=== PATIENT | male | born 1950 | race Caucasian/White ===

== ENCOUNTER 2022-06-05 14:41 | Outpatient (CLI) | payer MEDICARE, OTHER, SELFPAY ==
--- NOTE | 2022-06-05 14:36 | DI.RAD_ITS ---
Exam(s) XR SHOULDER RT COMPLETE 2+V EXAM: XR SHOULDER RT COMPLETE 2+V CLINICAL HISTORY: R shoulder pain. TECHNIQUE: 2D digital imaging was performed. Five views. COMPARISON: No exams were available for comparison FINDINGS: BONES: No acute fracture is present. No bony destructive lesion is seen. The prior rotator cuff repa ir with suture anchors in the humeral head. JOINTS: No dislocation present. Mild spurring at the glenoid. Mild spurring at the tip of the acrom ion. SOFT TISSUE: Normal. IMPRESSION: Mild degenerative changes. DATA REPOSITORY: RADIATION DOSE DELIVERED:
== END 2022-06-05 14:42 | disposition home or self-care (01) ==
LOC: DIORS 14:42
PROVIDERS: PCP Family Medicine; Referring Provider Family Medicine; Visit Provider Student in an Organized Health Care Education/Training Program
DX: M67.911 Unspecified disorder of synovium and tendon, right shoulder (principal)
CPT/HCPCS: 99203; 73030

== ENCOUNTER → 2022-07-31 09:40 | Outpatient (BNVA) | payer MEDICARE, OTHER, SELFPAY | PROVIDERS: PCP Family Medicine; Referring Provider Family Medicine; Visit Provider Student in an Organized Health Care Education/Training Program | DX: M75.21 Bicipital tendinitis, right shoulder (principal) | CPT/HCPCS: 99213 ==

== ENCOUNTER 2022-08-03 13:06 | Outpatient (CLI) | payer MEDICARE, OTHER, SELFPAY | END 2022-08-03 13:07 | disposition home or self-care (01) | LOC: ORDER INT 13:12 | PROVIDERS: PCP Family Medicine; Referring Provider Family Medicine; Visit Provider Student in an Organized Health Care Education/Training Program | DX: M75.21 Bicipital tendinitis, right shoulder (principal) ==

== ENCOUNTER → 2022-08-03 13:06 | Outpatient (BNVA) | payer MEDICARE, OTHER, SELFPAY | PROVIDERS: PCP Family Medicine; Referring Provider Family Medicine; Visit Provider Student in an Organized Health Care Education/Training Program | DX: M75.21 Bicipital tendinitis, right shoulder (principal) | CPT/HCPCS: 20611; J1040 ==

== ENCOUNTER 2022-09-21 10:05 | Outpatient (CLI) | payer MEDICARE, OTHER, SELFPAY ==
--- NOTE | 2022-09-21 09:45 | DI.RAD_ITS ---
Exam(s) XR KNEE LT 3V AP,LAT,JAYASHREE EXAM: XR KNEE LT 3V AP,LAT,JAYASHREE CLINICAL HISTORY: left knee pain. TECHNIQUE: 2D digital imaging was performed. COMPARISON: No exams were available for comparison FINDINGS: 3 views No evidence of fracture. Joint effusion noted. There are degenerative changes, most prominent in the lateral compartment where there is [id number] narrowing on the weight-bearing view. More moderate degenerative changes in the medial patellofemor al compartments. Bone density normal. No osseous lesions. IMPRESSION: Degenerative changes, most prominent in the lateral compartment. Joint effusion noted. DATA REPOSITORY: RADIATION DOSE DELIVERED:
== END 2022-09-21 10:06 | disposition home or self-care (01) ==
LOC: DIORS 10:05
PROVIDERS: PCP Family Medicine; Referring Provider Family Medicine; Visit Provider Student in an Organized Health Care Education/Training Program
DX: M17.12 Unilateral primary osteoarthritis, left knee; M75.21 Bicipital tendinitis, right shoulder
CPT/HCPCS: 73562; 99214

== ENCOUNTER 2023-01-23 16:03 | Outpatient (CLI) | payer MEDICARE, OTHER, SELFPAY ==
--- NOTE | 2023-01-23 14:30 | DI.RAD_ITS ---
Exam(s) XR SHOULDER LT COMPLETE 2+V EXAM: XR SHOULDER LT COMPLETE 2+V CLINICAL HISTORY: left shoulder pain. TECHNIQUE: 2D digital imaging was performed. Three views. COMPARISON: CR XR SHOULDER RT COMPLETE 2+V from 06/05/2022 FINDINGS: BONES: No acute fracture is present. No bony destructive lesion is seen. Metallic density in proxima l humerus presumably related to biceps tendon repair. And adjacent area of a bony exostosis. Is sig nificant spurring at the undersurface of the acromion. JOINTS: No dislocation present. Glenohumeral joint space is maintained. Minimal spurring. Mild spu rring at AC joint. SOFT TISSUE: Normal. IMPRESSION: Postsurgical and degenerative changes. DATA REPOSITORY: RADIATION DOSE DELIVERED:
== END 2023-01-23 16:04 | disposition home or self-care (01) ==
LOC: DIORS 16:03
PROVIDERS: PCP Family Medicine; Referring Provider Family Medicine; Visit Provider Student in an Organized Health Care Education/Training Program
DX: M25.512 Pain in left shoulder (principal); M75.102 Unspecified rotator cuff tear or rupture of left shoulder, not specified as traumatic
CPT/HCPCS: 99213; 73030

== ENCOUNTER → 2023-02-14 01:06 | Outpatient (CLI) | payer MEDICARE, OTHER, SELFPAY ==
--- NOTE | 2023-02-14 08:15 | DI.MRI_ITS ---
Exam(s) MR UPPER JOINT LT WO EXAM: MR UPPER JOINT LT WO CLINICAL HISTORY: PAIN,LT ROTATOR CUFF TEAR,M75.102 TECHNIQUE: Multiplanar multisequence MRI of the shoulder was performed. COMPARISON: MR MRI - L UPPER JOINT WO CONT from 02/07/2016 CR XR SHOULDER LT COMPLETE 2+V from 01/23/2023 FINDINGS: MARROW:There is evidence of interval rotator cuff surgery and biceps tenodesis, with the biceps tenod esis site at the junction of the upper humeral diaphysis and humeral neck. There is no evidence of f racture or Hill-Sachs deformity. There is, however, bone edema evident in the lesser tuberosity ante rior aspect of the humeral head region. ROTATOR CUFF MECHANISM: AC JOINT/ACROMIUM: There moderate degenerative changes in the AC joint. Mild impingement at this lev el. No evidence of os acromial. Supraspinatus: There is tendinitis signal. There is a full-thickness tear in the tendon approximatel y 1.4 cm proximal to the greater tuberosity insertion. AP measurement of the tear is 1.2 cm. There is some fluid in the subacromial bursa. There is no prominent muscle atrophy of the supraspinatus. Infraspinatus: Appears intact. No significant atrophy Teres Minor: Intact. No evidence of tear nor muscle atrophy. Subscapularis/anterior cuff: Abnormal signal with partial tearing anterior to the lesser tuberosity. This involves the more inferior aspect of the multipennate tendon. BICEPS TENDON: Tenodesis site appears intact LABRUM: Anterior labrum exhibits some mild abnormal intrasubstance signal posterior to the previous b iceps attachment site. The biceps tendon is no longer attached to the anterosuperior labrum. The po sterior labrum appears intact. Anterior labrum appears unchanged. Anteroinferior labrum appears int act. No Bankart lesion identified. The inferior glenohumeral ligament appears intact. GLENOHUMERAL JOINT: No obvious joint effusion or loose intra-articular bodies. Mild degenerative eliceo nges. No osteophytes. No degenerative subarticular cysts. QUADRILATERAL SPACE: No evidence of mass in the region of the axillary nerve and dorsal circumflex hu meral vessels. Visualized triceps muscle at this level appears unremarkable. IMPRESSION: 1. Compared to prior MRI scan of 2015 there has been interval surgery the rotator cuff and biceps ten odesis. 2. There is a full-thickness tear of the supraspinatus tendon as described above. AP measurement of the tear is 1.2 cm. There is fluid in the overlying subacromial bursa. Mild retraction evident. No prominent atrophy of the muscle belly. 3. There is partial tearing of the anterior cuff-subscapularis anterior to the lesser tuberosity. Th ere is intraosseous edema signal in the lesser tuberosity also evident. 4. Appearance of the superior labrum reflects interval resection of the intra-articular biceps tendo n from the anterosuperior labrum. There is some mild signal abnormality in the superior labrum poste rior to the site but doubtful for full-thickness tear. 5. Mild degenerative changes. No osteophytes. No prominent joint effusion and no loose intra-artic ular bodies evident in the glenohumeral joint. Moderate degenerative changes are again noted in the AC joint. DATA REPOSITORY:
== END ==
PROVIDERS: PCP Family Medicine; Visit Provider Student in an Organized Health Care Education/Training Program
DX: M75.120 Complete rotator cuff tear or rupture of unspecified shoulder, not specified as traumatic (principal)
CPT/HCPCS: 73221

== ENCOUNTER → 2023-02-21 09:06 | Outpatient (BNVA) | payer MEDICARE, OTHER, SELFPAY | PROVIDERS: PCP Family Medicine; Referring Provider Family Medicine; Visit Provider Student in an Organized Health Care Education/Training Program | DX: M75.102 Unspecified rotator cuff tear or rupture of left shoulder, not specified as traumatic (principal) | CPT/HCPCS: 99214 ==

== ENCOUNTER 2023-03-22 06:15 | Day surgery (SDC) | payer MEDICARE, SELFPAY ==
[2023-03-22] VITALS (11 sets, daily range): BP systolic 93–163; BP diastolic 33–67; PULSE 54–73; RESP 11–19; TEMP 36.1–36.6; O2SAT 95–100; BMI 25.1
[2023-03-22] MEDS: Lactated Ringers 1,000 ML 30 ML IV ×2 (06:50→10:30)
--- NOTE | 2023-03-22 07:14 | W.PM.DSUDISC ---
Date of service: 03/22/23 Time of Service: 12:00 Discharge Plan Disposition Patient Disposition: Home Condition: Stable Discharge Details Attending Provider: Ryan Hale Primary Care Provider: Jeronimo Oliver Home Meds and New Rx's Prescriptions: New naproxen 250 mg tablet 250 - 500 mg PO BID PRNQty: 30 0RF Rx Instructions: take with a meal aspirin 81 mg tablet,delayed release (DR/EC) 81 mg PO DAILY 7 Days Qty: 7 0RF oxycodone 5 mg tablet 5 - 10 mg PO Q4H MDD 30 mg PRN (Reason: moderate to severe pain) Qty: 12 0RF Continued No Known Home Meds Discharge Instructions Additional Instructions: Surgery: Left shoulder arthroscopy with revision rotator cuff repair (supraspinatus), extensive debridement, and subacromial decompression. Activity: For 6 weeks, you should keep your arm at your side in a neutral position at all times except for physical therapy. Do not try to lift or raise your arm using your own muscles. You should use the sling whenever you are out of the house. You may have to adjust the abduction pillow or remove it for comfort. At home it is best to remove the sling and rest the arm on a pillow at your side or support the operative side with your other hand. You may allow the arm to dangle at your side. A physical therapy prescription will be sent electronically to begin in about 3 weeks. Prescriptions: Aspirin 81 mg take 1 daily to prevent a blood clot for 7 days Naproxen 250 mg take 1-2 every 12 hours with a meal as needed for moderate pain Oxycodone 5 mg take 1-2 every 4-6 hours as needed for severe pain You may use dars-ntr-tuenwqu Tylenol (acetaminophen) as needed for mild pain. These pain medications may be taken all at once or in different combinations as needed. Also, recommend Colace (docusate) as a stool softener as surgery and pain medicine cause constipation. You may try [id number] diphenhydramine (Benadryl) 25-50 mg nightly as a sleep aid Dressings: Remove shoulder bandage after 3 days. Leave the sticky Steri-Strips in place until they fall off or remove them after you shower. Cover the incisions with Band-Aids or leave them open to air. You may shower after 5 days. Follow-up: 10-[address] Hale You may take off the leg compression stockings this evening at home. You may also leave them on a few days longer if you have a history of leg swelling or edema. Let us know right away if you develop any redness, drainage, fevers, chest pain, or trouble breathing. Do not drink alcohol or drive for at least 24 hours after anesthesia. Please call the office during business hours with any questions or concerns. Discharge Orders Discharge Orders: Discharge Order (Routine); Ordered 03/22/23 Ordered By: Ryan Hale DS: Diagnosis Discharge Diagnosis (1) Left rotator cuff tear: Status: Acute
--- NOTE | 2023-03-22 07:16 | W.PM.OP ---
Date of service: 03/22/23 Time of Service: 07:30 Operative Note Operative Note DATE OF PROCEDURE: 03/22/23 PRE-OP DIAGNOSIS: Left: 1. Rotator cuff tear: Chronic subscapularis, acute recurrent supraspinatus 2. Prior open biceps tenodesis POST-OP DIAGNOSIS: same PROCEDURE: Left: 1. Revision rotator cuff repair, CPT# 97080. This involved revision repair of the supraspinatus using anchors and sutures to reattach the rotator cuff back to the footprint of the greater tuberosity. 2. Extensive debridement, CPT# 39595. This involved using arthroscopic hand instruments, power instruments, and radiofrequency instruments to release rotator interval adhesions, remove loose prior retained permanent suture material, and debride areas of labral tearing, and synovitis within the glenohumeral joint anteriorly, superiorly and posteriorly. 4. Subacromial decompression, CPT# 98918. This involved using arthroscopic power instruments and a radiofrequency wand to complete a bursectomy and smooth the exposed greater tuberosity to reduce acromiohumeral interval narrowing optimize space for healing. The paraprofessional education assistant was medically required in order to help assist in techniques above, which require positioning the arm, holding the arthroscope, and manipulating multiple instruments and sutures at the same time. This cannot be done without the help of an experienced paraprofessional education assistant. SURGEON: Ryan Hale PUBLICATIONS MANAGER: Kamron Machado ANESTHESIA TYPE: General LMA/ETT and Primary Nerve Block Refer to Anesthesia Record ESTIMATED BLOOD LOSS: 10 PATHOLOGY: none sent COMPLICATIONS: None Patient was transported to: PACU Patient's condition: stable Implants: Arthrex: 4.75mm SwiveLock x1, 5.5mm SwiveLock x1 Indications: The patient was diagnosed with the above conditions and appropriately indicated for surgical intervention. Please see complete medical record for details. Findings: Exam under anesthesia: Mild loss of terminal external rotation and forward elevation as well as abduction external rotation. No instability or significant mechanical symptoms Glenohumeral joint: Moderate synovitis anterior, superior, and posterior. Moderate diffuse labral fraying type tearing anterior, superior biceps anchor with biceps tendon previously removed, and posterior. Chronic deficient subscapularis with significant thinning, but no acute tearing amenable to repair. Rotator interval adhesions. Obvious defect starting at the articular margin of the anterior supraspinatus previous repair with exposed loose permanent suture material. Subacromial space: Moderate bursitis, full-thickness anterior supraspinatus recurrent rotator cuff tear with attached lerma supraspinatus most anteriorly and more posteriorly. Unusual shape tear narrow from anterior to posterior, residual tendon lateral most part of the greater tuberosity footprint, and defect extending across the majority of the footprint from medial articular margin to lateral. No significant acromial bone spurring or impingement from the undersurface distal clavicle. Procedure Description: In the operating room, general anesthesia was induced. Bilateral shoulders were examined. The patient was positioned in the beachchair position. All bony prominences were well-padded. Preoperative antibiotics were administered. The shoulder was prepped and draped in the usual sterile fashion. The correct patient, procedure, and side of the procedure were all verified prior to incision. Starting through the posterior portal a standard complete diagnostic arthroscopy was performed of the glenohumeral joint including inspection of the long head of the biceps, anterior and superior labrum, subscapularis tendon, supraspinatus and infraspinatus tendons, and axillary recess. The glenoid and humeral head cartilage as well as the posterior labrum were inspected from an anterior viewing portal. Significant findings and interventions noted above. Degenerative changes about the glenohumeral joint with debrided, loose permanent suture material hanging into the glenohumeral joint from the articular side of the tear was removed with mechanical shaver and pituitary rongeur's. Not sent for any pathology given the traumatic mechanical failure, no signs or symptoms of indolent infection. Starting through the posterior portal, the arthroscope was directed into the subacromial space. A lateral 50 yard line lateral portal was created. A combination of power instruments and a radiofrequency ablator were used to debride bursitis anteriorly, posteriorly, and laterally as well as expose and smooth exposed greater tuberosity footprint. The coracoacromial ligament was minimally released. The bursectomy was completed viewing laterally and working from posteriorly and the rotator cuff was thoroughly inspected with findings noted above. The unusual tear configuration was localized, additional bursal permanent suture material was removed with mechanical shaver, pituitary rongeur's, and Nayeli clamps. The rotator cuff edges were debrided to establish lerma healthy tissue margins. The tear was moderately sized from anterior to posterior, but had a larger extent from lateral to medial. The anterior and posterior tissues could be reapposed with some tension over the exposed footprint. The tissue from medial to lateral had limited excursion. It was likely a acute on chronic defect probably area that had not completely healed although the tissue overall was healthy especially considering the age and revision setting with staff tissue anterior and posterior supraspinatus to this tear. Additional anterior superior lateral posterior superior lateral working and viewing portals were established. The greater tuberosity was thoroughly debrided of fibrinous material, as mentioned above was smoothed to minimize bony impingement especially given advanced age and narrowing of the acromiohumeral interval, and prepared to optimize bone and tendon healing. Rotator cuff had been debrided to healthy stable margin. Given the extent of the tear, the decision was made to proceed with a medial and lateral row modified type fixation. A single 4.75 mm swivel lock anchor was placed at the medial articular margin centrally located in the tear preloaded with 2 pairs of suture tape. It was also double loaded with sliding repair #2 sutures. Sutures were organized and the sliding repair sutures and with the knotless suture passer the initial pair of sutures placed medial to the medial margin of the tear to reduce the tear modestly from medial to lateral as much as the tissue defect would allow. The next repair sutures were then a centrally through the tear defect incorporate anterior and posterior tissue for planned [id number] repair. The remaining pairs of suture tape were then placed through the anterior and posterior tissue medial and lateral to the central knotted repair sutures using the self retrieving suture passer and the 90 degree lasso. The medial row sliding sutures were then secured with SMC arthroscopic knot nicely reapposed and the medialmost tissue to the repair anchor and medial footprint. Next the more central sliding sutures were repaired reapposed in the anterior and posterior rotator cuff tissue. Lastly all 4 tails from the pairs of suture tape placed anterior and posteriorly through medial lateral or brought out the lateral cannula and localized to a single lateral row 5.5 minimally anchor with appropriate tension placed on the repair sutures. There was excellent tissue reduction and compression over the footprint especially considering the revision setting. The repair was stable through testing. The shoulder was drained of arthroscopic fluid. All portal sites were copiously irrigated. These incisions were closed using 3-0 Monocryl in a buried fashion and then covered with Mastisol, Steri-Strips, Xeroform, dry gauze, and ABDs. The dressings were covered and secured with Medipore tape. The operative extremity was placed into a sling for immobilization. The patient awoke from anesthesia without complication and was transferred to the recovery room in a stable condition.
--- NOTE | 2023-03-22 07:24 | W.ANESPRE ---
General Info Date of Service Date Performed: 03/22/23 Height: 5 ft 8 in Weight: 75 kg Body Mass Index (BMI): 25.1 Surgical Procedure: Operation Date: 03/22/23 07:40 Proposed Procedure Side Surgeon p Shoulder Revision Rotator Cuff Arthroscopic w/Extensive Debridement, Subacromial Decompression Left Ryan Hale MD Meds Allergies and Home Medications Allergies Allergy/AdvReac Type Severity Reaction Status Date / Time No Known Allergies Allergy Verified 03/22/23 06:42 Home Medication Medication Instructions Recorded Unknown [No Known Home Meds] 06/06/22 aspirin 81 mg tablet,delayed 81 mg PO DAILY prevent blood clot 03/22/23 release 7 days #7 tabs naproxen 250 mg tablet 250 - 500 mg (1 - 2 x 250 mg) PO 03/22/23 BID PRN #30 tabs oxycodone 5 mg tablet 5 - 10 mg (1 - 2 x 5 mg) PO Q4H 03/22/23 PRN moderate to severe pain #12 tabs Current Visit Medications: Current Medications Generic Name Dose Route Start Last Admin Trade Name Oswaldq PRN Reason Stop Dose Admin Ringer's Solution 1,000 mls @ 30 mls/hr 03/22/23 06:00 03/22/23 06:50 IV 03/22/23 23:59 30 mls/hr INFUSION NORBERTO Administration Cefazolin Sodium/Dextrose 2 gm in 50 mls @ 100 mls/hr 03/22/23 06:00 Ancef Duplex IVPB 03/22/23 23:59 PREOP NORBERTO IV Miscellaneous Supplies 1 each 03/22/23 06:00 Iv Access IV 03/22/23 23:59 DIRECTED NORBERTO Sodium Chloride 0 ml 03/22/23 06:00 Normal Saline Flush 10 Ml Syr IV 03/22/23 23:59 PRN PRN Sodium Chloride 0 ml 03/22/23 06:00 Normal Saline 10 Ml Vial IJ 03/22/23 23:59 DIRECTED PRN Sterile Water 0 ml 03/22/23 06:00 Water,Injection,Sterile 10 Ml Vial IJ 03/22/23 23:59 DIRECTED PRN PFSH Active Problems Active Problems: Problem Status Onset Code Left rotator cuff tear ~11/27/22 M75.102 Left knee DJD M17.12 Tendonitis of long head of biceps brachii of right shoulder M75.21 Dysfunction of right rotator cuff M67.911 Surgical History Surgical History Status post left rotator cuff repair Status post right rotator cuff repair Tobacco Smoking/Tobacco Use Status: Never Alcohol Alcohol Intake: current Alcohol intake frequency: holidays/special occasions only Substance Use Substance use: Never Substance use type: does not use Vital Signs and Lab Results Vital Signs Most Recent Vital Signs in EMR: Most Recent Vital Signs Temp Pulse Resp BP Pulse Ox 36.6 C 70 18 125/63 99 03/22/23 06:35 03/22/23 06:35 03/22/23 06:35 03/22/23 06:35 03/22/23 06:35 Lab Results Blood Type / Crossmatch: No Data to Display Complete Blood Count: No Data to Display Complete Metabolic Panel: No Data to Display Liver Function Panel: No Data to Display Coagulation Panel: No Data to Display Cardiac Panel: No Data to Display Arterial Blood Gas: No Data to Display Venous Blood Gas: No Data to Display Pancreas Panel: No Data to Display Thyroid Panel: No Data to Display Infectious Disease: No Data to Display Blood Cultures: No Data to Display Toxicology Panel: No Data to Display Anesthesia Assessment and Plan Anesthesia History Personal History: No History of Anesthesia Complications Family History: No Family History of Anesthesia Complications Exercise Tolerance Exercise Tolerance: Metabolic Equivalents>4 Pertinent Negatives Pertinent Negatives: No Symptoms of GERD, No Major Cardiovascular Symptoms or Complaints and No Major Pulmonary Symptoms or Complaints Cardiac & Pulmonary Exam Cardiac Exam: Normal S1/S2 Heart Sounds Pulmonary Exam: Clear Bilateral Breath Sounds Implantable Cardiac Device Does patient have a Pacemaker or an ICD?: No Airway Exam Known Difficult Airway: No Mallampati Class: 1 Mouth Opening: Normal (> 3cm) Thyromental Distance: Greater than 3 cm Neck Range of Motion: Full ROM Neck Circumference: Normal Teeth Condition: Normal Dentition ASA Classification ASA Score: ASA 1 Emergency Case?: No NPO Status NPO Status: NPO Clears >2 hours, Solids >8 hours Anesthesia Plan Resuscitation Status: Full Code Anesthesia Technique: General Anesthesia Airway Planned: Endotracheal Tube Pain Management: Surgeon and patient request nerve block Monitors Used: Standard Monitors and SedLine
[2023-03-22] MEDS: ceFAZolin 2 GM/50 ML BAG IVPB (07:58)
--- NOTE | 2023-03-22 08:36 | W.ANESNERVE ---
Nerve Block Single Injection Procedure Date and Time Date Performed: 03/22/23 Procedure Start: 07:12 Location Where Procedure Performed Procedure Location: Day Surgery Unit Reason Performed: Postoperative Analgesia Requesting Provider: Ryan Hale Timeout Performed Timeout Performed: Yes Monitoring Used ECG, Blood Pressure, SpO2 and See EMR for corresponding vital signs Sterility Sterility: Hand Hygiene, Surgical Cap, Surgical Mask, Sterile Gloves and Chlorhexidine Sedation Given During Procedure Sedation Given (Indicate Dose Given): Versed IV Dose:: 2mg Patient Mental Status Patient Mental Status: Sedate with meaningful communication Nerve Block 1st Nerve Block: Laterality: Left Block Type: Interscalene Ultrasound Image Saved?: Yes Needle / Catheter Used: 100mm SonoPlex II Local Anesthetic Bolus (Indicate Dose Given): Lidocaine used for local infiltration of skin, Injected in 3-5ml increments after negative blood aspiration, Bupivacaine 0.5% Dose:: 10mL and Exparel Dose:: 10mL Additives (Indicate Dose Given): None Ultrasound: Sterile probe cover and gel used Nerve Stimulator: Supplement to Ultrasound use and No twitch or parasthesia noted < 0.5 mA Paresthesia: None Post Procedure Pain score (0-10): 0 Procedure Tolerated: No Complications Procedure Outcome: Successful Performed By: Dhara Caldwell Other (not listed above): Sukhjinder Moore CRNA assist with block
[2023-03-22] MEDS: EPINEPHrine 10 MG/10 ML ML (09:39)
--- NOTE | 2023-03-22 11:41 | W.ANESPOSTOP ---
Postoperative Evaluation Date, Time and Location Date Performed: 03/22/23 Time Performed: 11:41 Patient Location: Day Surgery Unit Vital Signs Most Recent Imported Vital Signs: Most Recent Vital Signs Temp Pulse Resp BP Pulse Ox 36.4 C L 68 19 130/57 L 97 03/22/23 11:09 03/22/23 11:09 03/22/23 11:09 03/22/23 11:09 03/22/23 11:09 Pain Score Most Recent Pain Score: Most Recent Pain Score Pain Level 5 03/22/23 11:09 Assessment Mental Status: Arousable with meaningful communication Airway and Respiratory Function: Patent airway with normal (patient baseline) respiratory exam Cardiovascular Function: Hemodynamically Stable Hydration Status: Adequately Hydrated Nausea & Vomiting: No Nausea or Vomiting Pain: Pain is tolerable per patient Peripheral Nerve Block: Regional nerve block not resolved at time of post operative discharge
== END 2023-03-22 13:04 | disposition home or self-care (01) ==
PROVIDERS: PCP Family Medicine; Visit Provider Student in an Organized Health Care Education/Training Program
PROC: (CPT 29827; principal; 2023-03-22 07:30)
DX: M75.102 Unspecified rotator cuff tear or rupture of left shoulder, not specified as traumatic (principal)
CPT/HCPCS: 29827; 29823; 29826; 76942; J0131; J0690; J1100; J1885; J2001; J2250; J2371; J2405; J2704; J3010

== ENCOUNTER → 2023-04-04 09:23 | Outpatient (BNVA) | payer MEDICARE, SELFPAY | PROVIDERS: PCP Family Medicine; Visit Provider Student in an Organized Health Care Education/Training Program | DX: Z47.89 Encounter for other orthopedic aftercare (principal); M75.102 Unspecified rotator cuff tear or rupture of left shoulder, not specified as traumatic ==

== ENCOUNTER → 2023-05-16 09:55 | Outpatient (BNVA) | payer MEDICARE, SELFPAY | PROVIDERS: PCP Family Medicine; Referring Provider Family Medicine; Visit Provider Student in an Organized Health Care Education/Training Program | DX: Z47.89 Encounter for other orthopedic aftercare (principal); M75.102 Unspecified rotator cuff tear or rupture of left shoulder, not specified as traumatic ==

== ENCOUNTER → 2023-07-11 09:26 | Outpatient (BNVA) | payer MEDICARE, SELFPAY | PROVIDERS: PCP Family Medicine; Referring Provider Family Medicine; Visit Provider Student in an Organized Health Care Education/Training Program | DX: M75.102 Unspecified rotator cuff tear or rupture of left shoulder, not specified as traumatic (principal) | CPT/HCPCS: 99213 ==

== ENCOUNTER 2023-11-15 11:03 | Outpatient (CLI) | payer MEDICARE, SELFPAY ==
--- NOTE | 2023-11-15 10:15 | DI.RAD_ITS ---
Exam(s) XR KNEE RT 3V AP,LAT,JAYASHREE EXAM: XR KNEE RT 3V AP,LAT,JAYASHREE CLINICAL HISTORY: right knee pain. TECHNIQUE: 2D digital imaging was performed of the right knee. Four views obtained. AP, lateral and PA tunnel views were obtained. COMPARISON: There are no priors for comparison. FINDINGS: BONES: No acute fracture is present. No bony destructive lesion is seen. There is a small enthesophyt e at the superior patella. JOINTS: There is mild narrowing of the medial femoral tibial joint. There is a small joint effusion. SOFT TISSUE: Vascular calcifications are present. IMPRESSION: Mild joint space narrowing and a small joint effusion. DATA REPOSITORY: RADIATION DOSE DELIVERED:
== END 2023-11-15 11:04 | disposition home or self-care (01) ==
LOC: DIORS 11:03
PROVIDERS: PCP Family Medicine; Referring Provider Family Medicine; Visit Provider Student in an Organized Health Care Education/Training Program
DX: M23.91 Unspecified internal derangement of right knee
CPT/HCPCS: 20610; 73562; J1010

== ENCOUNTER 2024-10-22 15:03 | Outpatient (CLI) | payer MEDICARE, SELFPAY ==
--- NOTE | 2024-10-22 14:45 | DI.RAD_ITS ---
Exam(s) XR ELBOW LT COMPLETE EXAM: XR ELBOW LT COMPLETE CLINICAL HISTORY: LEFT ELBOW PAIN. TECHNIQUE: 2D digital imaging was performed. COMPARISON: No exams were available for comparison FINDINGS: 3 views No evidence of acute fracture nor obvious joint effusion. There is no dominant swelling of the olecranon bursa. There is no fracture of the radial head and neck. Tiny calcific density off the lateral aspect of the radial head is noted which may be degenerative. There is also small calcification measuring 2 millimeters adjacent to the outer aspect of the lateral humeral epicondyle. May be associated with epicondylitis. Similar finding not seen on the opposite-medial aspect. The medial epicondyle appears unremarkable. Two small calcifications are noted at the mid joint level which may be loose bodies. IMPRESSION: There is a small 2 millimeter calcific density adjacent to the outer aspect of the lateral humeral epicondyle. Correlation with any clinical findings of epicondylitis recommended. Also noted are few small calcific densities centrally in the joint space which may be loose bodies. DATA REPOSITORY: RADIATION DOSE DELIVERED:
== END 2024-10-22 15:04 | disposition home or self-care (01) ==
LOC: DIORS 15:03
PROVIDERS: PCP Family Medicine; Referring Provider Family Medicine; Visit Provider Student in an Organized Health Care Education/Training Program
DX: M25.522 Pain in left elbow (principal); S46.212A Strain of muscle, fascia and tendon of other parts of biceps, left arm, initial encounter; X50.9XXA Other and unspecified overexertion or strenuous movements or postures, initial encounter
CPT/HCPCS: 99213; 73080

== ENCOUNTER 2024-10-23 08:43 | Outpatient (CLI) | payer MEDICARE, SELFPAY ==
--- NOTE | 2024-10-23 08:15 | DI.MRI_ITS ---
Exam(s) MR UPPER JOINT LT WO EXAM: MR UPPER JOINT LT WO CLINICAL HISTORY: L ELBOW PAIN S46.219A STRAIN MUSCLE FASCIA TENDON OF BICEPS TECHNIQUE: Multiplanar multisequence MRI was performed without intravenous contrast. COMPARISON: No exams were available for comparison FINDINGS: MARROW: There is no evidence of fracture, bone contusion, nor ominous osseous lesions. ELBOW JOINT: There is no evidence of prominent elbow joint effusion.No significant cartilage loss nor osteochondral defect and there is no evidence of loose intra-articular body. There are no osteophytes. EPICONDYLES: There is mild increased signal in the insertional aspect of the common extensor tendon adjacent to the lateral epicondyle. There is no abnormal intraosseous signal in the lateral epicondyle. Similar findings are not seen level of the opposite-medial epicondyle. ULNAR COLLATERAL LIGAMENT: The anterior band which extends from the medial epicondyle to the sublime tubercle of the coronoid process of the ulna is intact. This structure is the strongest ligament in the elbow and is the main opponent to severe valgus stress. RADIAL COLLATERAL LIGAMENT: Intact TENDONS: There is full-thickness tear of the biceps tendon from the radial tuberosity and retraction of the tendon approximately 1.5 cm. There is abundant fluid signal in the aponeurosis.. The brachialis tendon is intact. The triceps tendon is intact. CUBITAL TUNNEL/ULNAR NERVE: The ulnar nerve appears unremarkable beneath the cubital tunnel retinaculum/ arcuate ligament and posterior to the medial epicondyle. There is no evidence of arthritic spur arising from the epicondyle nor olecranon causing impingement on the ulnar nerve. There is no evidence of accessory anconeus muscle causing impingement at this level. There is also no evidence of soft tissue mass nor ganglia on cyst causing impingement at this level. OTHER FINDINGS: IMPRESSION: 1. There is full-thickness tear of the distal biceps tendon with retraction of the tendon approximately 1.5 cm from the radial tuberosity attachment site 2. There is now no mint of lateral epicondylitis. There is signal abnormality in the insertional aspect of the common extensor tendon adjacent to the lateral epicondyle. There is no abnormal marrow signal within the lateral epicondyle itself. DATA REPOSITORY:
== END 2024-10-23 09:03 ==
LOC: DI 08:44
PROVIDERS: PCP Family Medicine; Visit Provider Student in an Organized Health Care Education/Training Program
DX: S46.211A Strain of muscle, fascia and tendon of other parts of biceps, right arm, initial encounter (principal); X58.XXXA Exposure to other specified factors, initial encounter
CPT/HCPCS: 73221

== ENCOUNTER → 2024-10-28 15:05 | Outpatient (BNVA) | payer MEDICARE, SELFPAY | PROVIDERS: PCP Family Medicine; Referring Provider Family Medicine; Visit Provider Student in an Organized Health Care Education/Training Program | DX: S46.212A Strain of muscle, fascia and tendon of other parts of biceps, left arm, initial encounter (principal); X58.XXXA Exposure to other specified factors, initial encounter; Z98.890 Other specified postprocedural states | CPT/HCPCS: 99214 ==

== ENCOUNTER 2024-10-30 09:49 | Day surgery (SDC) | payer MEDICARE, SELFPAY ==
[2024-10-30] VITALS (24 sets, daily range): BP systolic 99–150; BP diastolic 43–84; PULSE 45–124; RESP 13–19; TEMP 36.3–36.8; O2SAT 94–100; BMI 25.2
--- NOTE | 2024-10-30 09:22 | W.PM.DSUDISC ---
Date of service: 10/30/24 Discharge Plan Disposition Patient Disposition: Home Condition: Stable Discharge Details Attending Provider: Ryan Hale Primary Care Provider: Jeronimo Oliver Home Meds and New Rx's Prescriptions: New naproxen 250 mg tablet 250 - 500 mg PO BID PRN (Reason: moderate pain and swelling) Qty: 30 0RF Rx Instructions: take with a meal oxycodone 5 mg tablet 5 - 10 mg PO .q4-6h MDD 30 mg PRN (Reason: severe pain) Qty: 9 0RF Discharge Instructions Additional Instructions: Surgery: Left distal biceps tendon repair 10/30/24 Activity: Protected use left upper extremity for about 3 months. Use the sling for support when out of the house for about 1 month. Otherwise, you may rest your forearm at your side or on pillows. Please keep elbow flexed/bent 90 degrees or greater until initial follow-up and then we will progress to full range of motion. Gentle use okay (e.g., writing, typing, eating, and drinking). Do not lift more than a couple pounds (i.e., coffee) for 6 weeks. A physical therapy prescription will be sent electronically to start about 3 weeks. PT protocol: For 2 weeks, keep elbow flexion at 90 degrees flexion or greater After 2 weeks, progress gently to full active range of motion Isometrics after 6 weeks Concentric strengthening after 2 months Eccentric strengthening after 3 months Prescriptions: Naproxen 250 mg take 1-2 every 12 hours with a meal as needed for moderate pain Oxycodone 5 mg take 1-2 every 4-6 hours as needed for severe pain You may use [id number]-[id number] Tylenol (acetaminophen) as needed for mild pain. These pain medications may be taken all at once or in different combinations as needed. Also, recommend Colace (docusate) as a stool softener as surgery and pain medicine cause constipation. You may try ndic-ygo-vrbyxkh diphenhydramine (Benadryl) 25-50 mg nightly as a sleep aid Dressings: Leave dressing in place until follow-up. Keep clean and dry at all times. Follow-up: 10-[address] Hale You may take off the leg compression stockings this evening at home. You may also leave them on a few days longer if you have a history of leg swelling or edema. Let us know right away if you develop any redness, drainage, fevers, chest pain, or trouble breathing. Do not drink alcohol or drive for at least 24 hours after anesthesia. Please call the office during business hours with any questions or concerns Stand Alone Forms: Anesthesia Discharge Inst., Anes.Nerve Block Instructions, [facility] ([facility]) Referrals: Ryan Hale MD [ [facility] STAFF PHYSICIAN, Orthopaedic Surgical] - 11/11/24 9:30 am Discharge Orders Discharge Orders: Discharge Order (Routine); Ordered 10/30/24 Ordered By: Jessica Griffith DS: Diagnosis Discharge Diagnosis (1) Traumatic rupture of left distal biceps tendon: Status: Acute
--- NOTE | 2024-10-30 09:23 | ROE_ITS ---
Operative Note Operative Note PRE-OP DIAGNOSIS: Left distal biceps tendon rupture POST-OP DIAGNOSIS: same PROCEDURE: Left distal biceps tendon repair, CPT #36609 SURGEON: Ryan Hale FINANCIAL OPERATIONS CONSULTANT: Jessica Griffith ANESTHESIA TYPE: Local By Surgeon, General LMA/ETT and Primary Nerve Block Refer to Anesthesia Record ESTIMATED BLOOD LOSS: 5 COMPLICATIONS: None Patient was transported to: PACU Patient's condition: stable Implants: Arthrex distal biceps button Indications: Please see complete medical record for details. Findings: Complete moderately attracted distal biceps tendon with probable pre-existing tendinopathy Procedure Description: In the operating room, general anesthesia was induced. The patient was positioned supine on the operating room table. All bony prominences were well- padded. Preoperative antibiotics were administered. The left elbow was prepped and draped in the usual sterile fashion. The correct patient, procedure, and side of the procedure were all verified prior to incision. The radial tuberosity was localized fluoroscopically with the forearm in full supination. Transverse incision was preinjected of 0.25% bupivacaine containing epinephrine. Skin was carefully incised protecting deeper abraded structures which were retracted to the margins of the fascia was open and the muscles retracted to the radial and ulnar sides exposing the zone of injury digitally and confirming an essentially balled radial tuberosity with elbow flexion and retraction proximally exposing a frayed and irregular biceps tendon stump. Some biceps scarring was freed as the tendon was delivered out of the wound with elbow flexion. There was noticeable abnormality of the distal tendon fraying and likely chronic tendinopathy precipitating the acute rupture. The tendon was secured with #2 FiberWire about 5 cm proximal to distal tubular arising the distal frayed ends and margin and then trimming to a more regular shape for later repair. The tendon had reasonably good excursion after freeing up the last adhesions and with steady traction. The radial tuberosity was then localized with [place] retractor ulnarly and only [place] gently on bone radially without any vigorous retraction. The prepared tendon fit nicely an 8 mm graft tube. The guidepin was confirmed with fluoroscopy to be in the correct location, drilled bicortically, and then overreamed with the 8 mm low-profile reamer. The reamings were copiously irrigated and removed, pin removed, and unicortical socket and bicortical pin hole confirmed in the appropriate location. The #2 FiberWire free ends were then shuttled [id number] through the button implants and then the free needle used for the modified tension slide technique passing a free tail back through the tendon passed a few fiber loop sutures. The tension and sliding sutures were marked. The button was loaded on the proof operator and then passed through the socket and pinhole for cortex, flipped just on the far side, tendon provisionally delivered through tensioning into the socket using a [place] to ensure the margins cleared the bone edge, and fluoroscopy used to confirm appropriate button placement. The elbow was then flexed to about 90 degrees and final tension done, any creep removed and then tension confirmed to be appropriate and knots tied. A free tails then passed back through the tendon more proximally and tied to the other tail for added strength. There was good position, strength of repair and tendon, and good socket tendon interface. Hemostasis was excellent. The wound was copiously irrigated with normal saline. Subcutaneous tissue closed with a couple 2-0 Monocryl buried interrupted's. Skin closed with 3-0 Monocryl running subcuticular, skin glue applied, and covered with Mepilex Band-Aid. Elbow was maintained 90 degrees flexion and placed to a sling. The patient awoke from anesthesia without complication and was transferred to the recovery room in a stable condition. Date of Procedure: 10/30/24
[2024-10-30] MEDS: Lactated Ringers 1,000 ML 30 ML IV (10:29)
--- NOTE | 2024-10-30 11:14 | ANES.PREOP_ITS ---
General Info Date of Service Date Performed: 10/30/24 Height: 5 ft 8 in Weight: 75.1 kg Body Mass Index (BMI): 25.2 Surgical Procedure: Operation Date: 10/30/24 12:25 Proposed Procedure Side Surgeon p Distal Biceps Tendon Repair Left Ryan Hale MD Actual Procedure Side Surgeon p Distal Biceps Tendon Repair Left Ryan Hale MD Pre-Op Diagnosis Post-Op Diagnosis Traumatic rupture of left distal biceps tendon Meds Allergies and Home Medications Allergies Allergy/AdvReac Type Severity Reaction Status Date / Time No Known Allergies Allergy Verified 10/30/24 10:18 Home Medication ?Medication ?Instructions ?Recorded naproxen 250 mg tablet 250 - 500 mg (1 - 2 x 250 mg ) PO 10/30/24 BID PRN moderate pain and swelling #30 tabs oxycodone 5 mg tablet 5 - 10 mg (1 - 2 x 5 mg) PO .q4-6h 10/30/24 PRN severe pain #9 tabs Current Visit Medications: Current Medications Generic Name Dose Route Start Last Admin Trade Name Freq PRN Reason Stop Dose Admin Ringer's Solution 1,000 mls @ 30 mls/hr 10/30/24 06:00 10/30/24 10:29 IV 10/30/24 23:59 30 mls/hr INFUSION NORBERTO Administration Cefazolin Sodium/Dextrose 2 gm in 50 mls @ 100 mls/hr 10/30/24 06:00 Ancef Duplex IVPB 10/30/24 23:59 PREOP NORBERTO Tranexamic Acid/Sodium Chloride 1,000 mg in 100 mls @ 600 mls/hr 10/30/24 06:00 IVPB 10/30/24 23:59 PREOP NORBERTO IV Miscellaneous Supplies 1 each 10/30/24 06:00 Iv Access IV 10/30/24 23:59 DIRECTED NORBERTO Oxycodone HCl 0 mg 10/30/24 10:13 Oxycodone 5 Mg Tab PO 11/29/24 10:12 Q3H PRN PRN Pain Sodium Chloride 0 ml 10/30/24 06:00 Normal Saline Flush 10 Ml Syr IV 10/30/24 23:59 PRN PRN Sodium Chloride 0 ml 10/30/24 06:00 Normal Saline 10 Ml Vial IJ 10/30/24 23:59 DIRECTED PRN Sterile Water 0 ml 10/30/24 06:00 Water,Injection,Sterile 10 Ml Vial IJ 10/30/24 23:59 DIRECTED PRN PFSH Active Problems Active Problems: Problem Status Onset Code Traumatic rupture of left distal biceps tendon Acute ~10/12/24 S46.212A Internal derangement of right knee Acute 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 Dysfunction of right rotator cuff Acute M67.911 Medical History Medical History Tendonitis of long head of biceps brachii of right shoulder depo medrol 08/03/22 Left rotator cuff tear (~11/27/22) Surgical History Surgical History Status post right rotator cuff repair Status post left rotator cuff repair x2 Tobacco Smoking/Tobacco Use Status: Never Alcohol Alcohol Intake: current Alcohol intake frequency: holidays/special occasions only Substance Use Substance use: Never Substance use type: does not use Vital Signs and Lab Results Vital Signs Most Recent Vital Signs in EMR: Most Recent Vital Signs Temp Pulse Resp BP Pulse Ox 36.4 C L 64 16 150/81 H 99 10/30/24 10:05 10/30/24 10:05 10/30/24 10:05 10/30/24 10:05 10/30/24 10:05 Anesthesia Assessment and Plan Anesthesia History Personal History: No History of Anesthesia Complications Family History: No Family History of Anesthesia Complications Exercise Tolerance Exercise Tolerance: Metabolic Equivalents>4 Pertinent Negatives Pertinent Negatives: No Symptoms of GERD, No Major Cardiovascular Symptoms or Complaints, No Major Pulmonary Symptoms or Complaints and No History of CVA/TIA Cardiac & Pulmonary Exam Cardiac Exam: Normal S1/S2 Heart Sounds Pulmonary Exam: Clear Bilateral Breath Sounds Implantable Cardiac Device Does patient have a Pacemaker or an ICD?: No Airway Exam Known Difficult Airway: No Mallampati Class: 1 Mouth Opening: Normal (> 3cm) Thyromental Distance: Greater than 3 cm Neck Range of Motion: Full ROM Neck Circumference: Normal Teeth Condition: Normal Dentition ASA Classification ASA Score: ASA 2 Emergency Case?: No NPO Status NPO Status: NPO Clears >2 hours, Solids >8 hours Anesthesia Plan Resuscitation Status: Full Code Anesthesia Technique: General Anesthesia Airway Planned: Endotracheal Tube Pain Management: Surgeon and patient request nerve block Monitors Used: Standard Monitors
--- NOTE | 2024-10-30 11:35 | W.ANESNERVE ---
Nerve Block Single Injection Procedure Date and Time Date Performed: 10/30/24 Procedure Start: 11:22 Location Where Procedure Performed Procedure Location: Day Surgery Unit Reason Performed: Postoperative Analgesia Requesting Provider: Ryan Hale Timeout Performed Timeout Performed: Yes Monitoring Used ECG, Blood Pressure, SpO2 and See EMR for corresponding vital signs Sterility Sterility: Hand Hygiene, Surgical Cap, Surgical Mask, Sterile Gloves and Chlorhexidine Sedation Given During Procedure Sedation Given (Indicate Dose Given): Versed IV Dose:: 2mg Patient Mental Status Patient Mental Status: Sedate with meaningful communication Nerve Block 1st Nerve Block: Laterality: Left Block Type: Supraclavicular Ultrasound Image Saved?: Yes Needle / Catheter Used: 100mm SonoPlex II Local Anesthetic Bolus (Indicate Dose Given): Lidocaine used for local infiltration of skin, Injected in 3-5ml increments after negative blood aspiration, Bupivacaine 0.25% Dose:: 10mL and Exparel Dose:: 10mL Additives (Indicate Dose Given): None Ultrasound: Sterile probe cover and gel used Nerve Stimulator: Supplement to Ultrasound use Paresthesia: None Procedure Tolerated: No Complications and Patient tolerated well Procedure Outcome: Successful Performed By: Kelsie Steven Supervised By: Theresa Gutierrez
[2024-10-30] MEDS: ceFAZolin 2 GM/50 ML BAG IVPB (12:02)
[2024-10-30] MEDS: TRANEXAMIC ACID/SOD. CHL. 1,000 MG/100 ML BAG 600 MG IVPB (12:18)
[2024-10-30] MEDS: Bupivacaine 0.25% Pres-Free W/EPI 30 ML VIAL (12:43)
--- NOTE | 2024-10-30 13:40 | DI.RAD_ITS ---
Exam(s) XR HUMERUS LT EXAM: XR HUMERUS LT CLINICAL HISTORY: Left Bicep tendon rupture. TECHNIQUE: 2D and realtime digital imaging was performed. COMPARISON: CR XR ELBOW LT COMPLETE from 10/22/2024 FINDINGS: Please see procedure note for details. Fluoro time: 3 pointseconds RADIATION DOSE DELIVERED: sal Giron=0.14 mGy
--- NOTE | 2024-10-30 14:26 | W.ANESPOSTOP ---
Postoperative Evaluation Date, Time and Location Date Performed: 10/30/24 Time Performed: 14:20 Patient Location: PACU Vital Signs Most Recent Imported Vital Signs: Most Recent Vital Signs Temp Pulse Resp BP Pulse Ox 36.4 C L 56 L 17 102/44 L 96 10/30/24 14:20 10/30/24 14:21 10/30/24 14:21 10/30/24 14:20 10/30/24 14:21 Pain Score Most Recent Pain Score: Most Recent Pain Score Pain Level 4 10/30/24 14:21 Assessment Mental Status: Awake (Alert & Oriented to Patient Baseline) Airway and Respiratory Function: Patent airway with normal (patient baseline) respiratory exam Cardiovascular Function: Hemodynamically Stable Hydration Status: Adequately Hydrated Nausea & Vomiting: No Nausea or Vomiting Pain: Pt. Denies Any Pain Peripheral Nerve Block: Regional nerve block not resolved at time of post operative discharge
== END 2024-10-30 15:45 | disposition home or self-care (01) ==
LOC: SUR 09:50
PROVIDERS: PCP Family Medicine; Visit Provider Student in an Organized Health Care Education/Training Program
PROC: (CPT 24341; principal; 2024-10-30 12:15)
DX: S46.212A Strain of muscle, fascia and tendon of other parts of biceps, left arm, initial encounter (principal); X58.XXXA Exposure to other specified factors, initial encounter; G89.18 Other acute postprocedural pain
CPT/HCPCS: 24342; 64415; 76000; 73060; J0665; J0666; J0690; J1100; J2250; J2405; J2704

== ENCOUNTER → 2024-11-11 09:20 | Outpatient (BNVA) | payer MEDICARE, SELFPAY | PROVIDERS: PCP Family Medicine; Referring Provider Family Medicine; Visit Provider Student in an Organized Health Care Education/Training Program | DX: Z47.89 Encounter for other orthopedic aftercare (principal) | CPT/HCPCS: 99024 ==

== ENCOUNTER → 2024-12-09 09:20 | Outpatient (BNVA) | payer MEDICARE, SELFPAY | PROVIDERS: PCP Family Medicine; Referring Provider Family Medicine; Visit Provider Student in an Organized Health Care Education/Training Program | DX: S46.212D Strain of muscle, fascia and tendon of other parts of biceps, left arm, subsequent encounter (principal); X58.XXXD Exposure to other specified factors, subsequent encounter | CPT/HCPCS: 99024 ==

== ENCOUNTER → 2025-02-10 09:20 | Outpatient (BNVA) | payer MEDICARE, SELFPAY | PROVIDERS: PCP Family Medicine; Referring Provider Family Medicine; Visit Provider Student in an Organized Health Care Education/Training Program | DX: Z47.89 Encounter for other orthopedic aftercare (principal); S46.212D Strain of muscle, fascia and tendon of other parts of biceps, left arm, subsequent encounter; X58.XXXD Exposure to other specified factors, subsequent encounter | CPT/HCPCS: 99213 ==